=== PATIENT | male | born 1985 | race Caucasian/White ===

== ENCOUNTER 2017-02-18 09:32 | Emergency (ER) | payer SELFPAY ==
[~2017-02-18 09:32] MED LIST: ACYC800T PO; HYDR-971 PO
[2017-02-18] MEDS ORDERED: IV NORMAL SALINE 1000ML BAG 1,000 ML IV ONE (09:45)
[2017-02-18] MEDS ORDERED: VANCOMYCIN PER PHARMACY MC PRN (09:45)
--- NOTE | 2017-02-18 09:54 | PHYS DOC ---
Past Medical History Past Medical History: No Pertinent History Past Surgical History: No Surgical History Alcohol Use: None Drug Use: None Adult General Chief Complaint Chief Complaint: ELBOW PROBLEM HPI HPI Patient is a 31 year old M who presents with right elbow pain for the past 4 days. Patient states he got bit by a bug on his right elbow and has had increased swelling and pain to that elbow. Patient states he's a decreased range of motion and hurts to flex his elbow. Patient denies any fevers. Patient denies any purulent drainage. Patient denies any IV drug use. Patient states swelling has moved to his forearm however has no difficulties moving his fingers or his hand. Patient has no other complaints. Review of Systems Review of Systems GEN: Denies fevers, chills, sweats HEENT: Denies blurred vision, sore throat CV: Denies chest pain RESP: Denies shortness of air, cough GI: Denies n/v/d NEURO: Denies confusion, dizziness MSK: Right elbow pain Current Medications Current Medications Current Medications Medications (Trade) Dose Ordered Sig/Yamile Start Time Stop Time Status Last Admin Dose Admin Sodium Chloride 1,000 ml @ 1,000 mls/hr 1X ONCE 02/18/17 09:45 02/18/17 10:44 Vancomycin HCl (Vanco Per Pharmacy) 1 each PRN DAILY PRN 02/18/17 09:45 Vancomycin HCl 2 gm/Sodium Chloride 500 ml @ 250 mls/hr 1X ONCE 02/18/17 11:00 02/18/17 12:59 Allergies Allergies Allergies Coded Allergies Type Severity Reaction Last Updated Verified No Known Drug Allergies 08/06/15 No Physical Exam Physical Exam GEN.: No apparent distress. Alert and oriented. HEENT: Head is normocephalic, atraumatic NECK: Supple. LUNGS: CTAB. HEART: RRR, S1, S2 present. Peripheral pulses intact ABDOMEN: Soft, nontender. Positive bowel sounds. EXTREMITIES: Without any cyanosis, swelling and tenderness palpation to the right elbow pain with flexion of the right elbow, increased swelling and test palpation to the right forearm, right radial pulse +2, right finger capillary refill less than 2 seconds NEUROLOGIC: Normal speech, normal tone PSYCHIATRIC: Normal affect, normal mood. SKIN: No ulcerations Current Patient Data Vital Signs Vital Signs Date Time Temp Pulse Resp B/P (MAP) Pulse Ox O2 Delivery O2 Flow Rate FiO2 02/18/17 10:03 98.0 87 18 119/58 (78) 99 Room Air 98.0 Lab Values Laboratory Tests Test 02/18/17 09:55 White Blood Count 13.3 x10^3/uL (4.0-11.0) H Red Blood Count 4.48 x10^6/uL (4.30-5.70) Hemoglobin 14.5 g/dL (13.0-17.5) Hematocrit 41.6 % (39.0-53.0) Mean Corpuscular Volume 93 fL (79-100) Mean Corpuscular Hemoglobin 32 pg (25-35) Mean Corpuscular Hemoglobin Concent 35 g/dL (31-37) Red Cell Distribution Width 12.1 % (11.5-14.5) Platelet Count 208 x10^3/uL (140-400) Neutrophils (%) (Auto) 71 % (31-73) Lymphocytes (%) (Auto) 16 % (24-48) L Monocytes (%) (Auto) 13 % (0-9) H Eosinophils (%) (Auto) 1 % (0-3) Basophils (%) (Auto) 0 % (0-3) Neutrophils # (Auto) 9.4 x10^3uL (1.8-7.7) H Lymphocytes # (Auto) 2.1 x10^3/uL (1.0-4.8) Monocytes # (Auto) 1.7 x10^3/uL (0.0-1.1) H Eosinophils # (Auto) 0.1 x10^3/uL (0.0-0.7) Basophils # (Auto) 0.0 x10^3/uL (0.0-0.2) Laboratory Tests 02/18/17 09:55 EKG EKG [] Radiology/Procedures Radiology/Procedures X-ray right elbow shows soft tissue swelling without any obvious fracture [] Course & Med Decision Making Course & Med Decision Making Pertinent Labs and Imaging studies reviewed. (See chart for details) ED course: Patient was seen and examined emergency room a septic workup was ordered 1025: Patient has high anxiety and wants the IV out and wants to go outside and smoke. Patient declined any antianxiety medication or nicotine patch. 1033: Went and talked to the patient in regards to his anxiety and nicotine addiction. Attempted to make alternative treatment plans to help with his nicotine addiction and anxiety however he refuses nicotine patch and any antianxiety medication. Patient states he wants to leave AGAINST MEDICAL ADVICE. Had a long discussion with the patient about his possible right septic elbow and the fact that he could if left untreated. Strongly urged the patient to stay in the hospital for IV antibiotics and further evaluation and management by orthopedics. Patient understands all risks including and disability and has a medical decision making capacity to refuse medical care at this time. Patient is decided to leave AGAINST MEDICAL ADVICE. I will prescribe the patient oral antibiotics to be discharged with, Bactrim DS and Keflex 500 mg, and strongly urged the patient to return to the hospital when he is ready to be treated. [] Dragon Disclaimer Dragon Disclaimer This electronic medical record was generated, in whole or in part, using a voice recognition dictation system. Departure Departure Impression: Primary Impression: Swelling of joint, elbow, right Additional Impression: Left against medical advice Disposition: 07 AGAINST MEDICAL ADVICE Condition: STABLE Referrals: NO PCP (PCP) Patient Instructions: Bone and Joint Infections Scripts Sulfamethoxazole/Trimethoprim (BACTRIM DS TABLET) 1 Each Tablet 1 TAB PO BID, #20 TAB Prov: JEANNETTE VUONG DO 02/18/17 Cephalexin (KEFLEX) 250 Mg Capsule 1 CAP PO TID for 10 Days, #30 CAP Prov: JEANNETTE VUONG DO 02/18/17 Problem Qualifiers JEANNETTE VUONG DO Feb 18, 2017 09:54
[2017-02-18 10:03] VITALS: BP 119/58
[2017-02-18 10:15] LABS: BASO % 0 % (0-3); EOS % 1 % (0-3); HEMATOCRIT 41.6 % (39.0-53.0); HEMOGLOBIN 14.5 g/dL (13.0-17.5); LYMPH # 2.1 x10^3/uL (1.0-4.8); LYMPH % 16 % (24-48); MEAN CORPUSCULAR HEMOGLOBIN 32 pg (25-35); MEAN CORPUSCULAR HGB CONC 35 g/dL (31-37); MEAN CORPUSCULAR VOLUME 93 fL (79-100); MONO % 13 % (0-9); NEUT % 71 % (31-73); PLATELET COUNT 208 x10^3/uL (140-400); RED BLOOD COUNT 4.48 x10^6/uL (4.30-5.70); RED CELL DISTRIBUTION WIDTH 12.1 % (11.5-14.5); WHITE BLOOD COUNT 13.3 x10^3/uL (4.0-11.0)
--- NOTE | 2017-02-18 10:15 | RAD ---
Exam performed : 3 views right elbow. Indication: Right elbow pain, redness and swelling for 6 days, no known injury Date of Service: 02/18/17 Comparison: None available Discussion: AP, oblique and lateral radiographs of the elbow reveal the osseous structures to be intact and well aligned. The joint space is well-preserved. Evidence of fracture, dislocation or joint effusion is not seen. There is extensive soft tissue swelling around the elbow joint. Impression: Diffuse soft tissue swelling without underlying acute bony abnormality.
[2017-02-18] MEDS ORDERED: CEPH-263 PO (10:30)
[2017-02-18] MEDS ORDERED: SULF1TAB24 PO (10:30)
[2017-02-18 10:41] LABS: CALCIUM 9.1 mg/dL (8.5-10.1); CREATININE 0.9 mg/dL (0.7-1.3); GFR 98.4; POTASSIUM 4.2 mmol/L (3.5-5.1)
[2017-02-18 10:53] LABS: ALBUMIN 3.7 g/dL (3.4-5.0); ALBUMIN/GLOBULIN RATIO 1.1 (1.0-1.7); C-REACTIVE PROTEIN 35.4 mg/L (0-3.3); TOTAL BILIRUBIN 0.9 mg/dL (0.2-1.0); TOTAL PROTEIN 7.1 g/dL (6.4-8.2)
[2017-02-18] MEDS ORDERED: VANCOMYCIN 2 GM in IV NORMAL SALINE 500ML BAG 500 ML IV ONE (11:00)
== END 2017-02-18 10:37 | disposition left against medical advice (07) ==
LOC: ER 09:32
DX: M25.421 Effusion, right elbow (principal); F41.9 Anxiety disorder, unspecified
CPT/HCPCS: 36415; 73080; 80053; 83605; 84145; 85025; 85651; 86140; 87040; 99285; G0480